=== PATIENT | male | born 1945 | race Caucasian/White ===

== ENCOUNTER → 2017-11-22 | Outpatient (REF) | payer MEDICARE, OTHER ==
[~2017-11-22] MED LIST: ASPI-757 PO; CHOL10005 PO; DOCU-416 PO; HYDR-4309 PO; OMEG1CAP39 PO; PHEN200T32 PO; PRAV40TA78 PO; UBID100C48 PO
== END ==
LOC: ZZSENDIN 12:00
PROVIDERS: ATTEND Urology
DX: C67.9 Malignant neoplasm of bladder, unspecified (principal)
CPT/HCPCS: 88108

== ENCOUNTER → 2018-04-19 | Outpatient (REF) | payer MEDICARE, OTHER ==
[~2018-04-19] MED LIST changes: -HYDR-4309 PO; +HYDR-653 PO
== END ==
LOC: ZZSENDIN 09:30
PROVIDERS: ATTEND Urology
DX: C67.9 Malignant neoplasm of bladder, unspecified (principal)
CPT/HCPCS: 88108

== ENCOUNTER → 2018-08-29 | Outpatient (REF) | payer MEDICARE, OTHER | LOC: ZZSENDIN 12:00 | PROVIDERS: ATTEND Urology | DX: R31.9 Hematuria, unspecified (principal) | CPT/HCPCS: 88108 ==

== ENCOUNTER → 2018-10-19 | Outpatient (CLI) | payer MEDICARE, OTHER ==
--- NOTE | 2018-10-19 15:24 | RADIOLOGY IMAGING REPORT ---
FACILITY: [facility] PATIENT NAME: Deon Daily : 1945 MR: [id number] V: [id number] EXAM DATE: ORDERING PHYSICIAN: NATHAN CORDOVA TECHNOLOGIST: Location: [facility] - [place] Patient: Deon Daily : 1945 Visit/Account:[id number] Date of Sevice: 10/19/2018 Chest with lateral, 2 views. HISTORY: A history of cough. COMPARISON: 09/16/2011. Moderate scoliosis and degenerative changes are present in the midthoracic spine. The aortic knob is minimally calcified. The heart and mediastinum are otherwise unremarkable. No bulky adenopathy. Pul monary vessels are unremarkable. Minimal streaky densities are present in the left lung base. The john ngs are voluminous. The pleural surfaces are unremarkable. No pneumothorax. Surgical clips project on the upper abdomen. IMPRESSION: Minimal left basilar subsegmental atelectasis or pleural parenchymal scar. Voluminous lungs. Otherwise no evidence of acute cardiopulmonary disease. Report Dictated By: Ulises Sutton MD at 10/19/2018 3:17 PM Report E-Signed By: Ulises Sutton MD at 10/19/2018 3:20 PM WSN:[id number]
== END ==
LOC: RAD 14:42
PROVIDERS: ATTEND Nurse Practitioner Family
DX: R50.9 Fever, unspecified (principal); R09.02 Hypoxemia
CPT/HCPCS: 71046

== ENCOUNTER → 2018-10-31 | Outpatient (CLI) | payer MEDICARE, OTHER ==
--- NOTE | 2018-10-31 15:38 | RADIOLOGY IMAGING REPORT ---
FACILITY: [facility] PATIENT NAME: Deon Daily : 1945 MR: [id number] V: [id number] EXAM DATE: ORDERING PHYSICIAN: NATHAN CORDOVA TECHNOLOGIST: Location: [facility] - [place] Patient: Deon Daily : 1945 Visit/Account:[id number] Date of Sevice: 10/31/2018 Exam type: CHEST PA LAT History: Diagnosed with pneumonia one week ago Comparison: October 19, 2018. Findings: Again noted is mild hyperexpansion of the lung terrazas. Mild left basilar scarring/atelectasis is aga in seen.. No new areas of pulmonary consolidation identified. No evidence of pleural effusions or o vert pulmonary edema. The cardiac swelling is normal in size. There is severe scoliosis of the thor acic spine. Surgical clips are present right upper quadrant of the abdomen IMPRESSION: 1. Hyperexpansion the lung terrazas Left basilar scarring versus atelectasis appears unchanged No evidence of acute pulmonary consolidation Report Dictated By: Annette Sparks MD at 10/31/2018 3:02 PM Report E-Signed By: Annette Sparks MD at 10/31/2018 3:32 PM WSN:[id number]
== END ==
LOC: RAD 10:08
PROVIDERS: ATTEND Nurse Practitioner Family
DX: J18.9 Pneumonia, unspecified organism (principal)
CPT/HCPCS: 71046

== ENCOUNTER → 2018-12-05 | Outpatient (REF) | payer MEDICARE, OTHER | LOC: ZZSENDIN 12:00 | PROVIDERS: ATTEND Urology | DX: R31.9 Hematuria, unspecified (principal) | CPT/HCPCS: 88108 ==